=== PATIENT | male | born 1980 | race Caucasian/White ===

== ENCOUNTER 2023-09-30 14:49 | Inpatient (IN) | payer BC ==
[2023-09-30 15:17] VITALS: BMI 29.9
[2023-09-30] MEDS ORDERED: MAG HYDROX/AL HYDROX/SIMETH 30 ML UNIT-DOSE CUP PO PRN (17:15)
[2023-09-30] MEDS ORDERED: IBUPROFEN 600 MG TABLET (FP) PO PRN (17:15)
[2023-09-30] MEDS ORDERED: POLYETHYLENE GLYCOL (HEALTHYLAX) 3350 17 GM PACKET PO PRN (17:15)
[2023-09-30] MEDS ORDERED: IBUPROFEN 400 MG TABLET (FP) PO PRN (17:15)
[2023-09-30] MEDS ORDERED: NALOXONE HCL 0.4 MG/ML VIAL IM PRN (17:15)
[2023-09-30] MEDS ORDERED: hydrOXYzine PAMOATE 25 MG CAPSULE (FP) PO PRN (17:15)
[2023-09-30] MEDS ORDERED: LOPERAMIDE HCL 2 MG CAPSULE PO PRN (17:15)
[2023-09-30] MEDS ORDERED: guaiFENesin 600 MG TABLET.ER (FP) PO PRN (17:15)
[2023-09-30] MEDS ORDERED: MAGNESIUM HYDROX 2400MG/30ML ORAL SUSPENSION 30 ML CUP PO PRN (17:15)
[2023-09-30] MEDS ORDERED: BISMUTH SUBSALICYLATE 524 MG/30 ML PO PRN (17:15)
[2023-09-30] MEDS ORDERED: BENZOCAINE/MENTHOL (CHLORASEPTIC ) LOZENGE MM PRN (17:15)
[2023-09-30] MEDS ORDERED: ONDANSETRON *ODT* 4 MG TABLET SL PRN (17:15)
[2023-09-30] MEDS ORDERED: ACETAMINOPHEN 325 MG TABLET (FP) PO PRN (17:15)
[2023-09-30] MEDS ORDERED: BENZONATATE 200 MG CAPSULE PO PRN (17:15)
[2023-09-30] MEDS ORDERED: NALOXONE HCL (KLOXXADO) 8 MG SPRAY NS PRN (17:15)
[2023-09-30] MEDS ORDERED: DICYCLOMINE HCL 10 MG CAPSULE PO PRN (17:15)
[2023-09-30] MEDS ORDERED: METOPROLOL TARTRATE 25 MG TABLET (FP) ONE (20:34)
[2023-09-30] MEDS: METOPROLOL TARTRATE 25 MG TABLET (FP) PO ONE (20:35)
[2023-09-30] MEDS: chlordiazePOXIDE HCL 25 MG CAPSULE PO SCH (22:22)
[2023-09-30] MEDS: THIAMINE 100 MG TABLET PO SCH (22:23)
[2023-09-30] MEDS: MELATONIN 5 MG TABLETS PO SCH (23:16)
[2023-10-01] MEDS: ATORVASTATIN CA 20 MG TABLET (FP) PO SCH (00:07)
[2023-10-01 08:21] LABS: CHLORIDE 99 mmol/L (98-107); POTASSIUM 4.4 mmol/L (3.5-5.1); SODIUM 136 mmol/L (136-145)
[2023-10-01 08:23] LABS: ALBUMIN 3.7 g/dl (3.4-5.0); ANION GAP 6 mmol/L (4-13); BLOOD UREA NITROGEN 10.4 mg/dL (7-18); CALCIUM 9.4 mg/dL (8.5-10.1); CO2 31 mmol/L (21-32)
[2023-10-01 08:24] LABS: GLUCOSE,RANDOM 104 mg/dL (74-106)
[2023-10-01 08:27] LABS: SGOT/AST 105 U/L (15-37); SGPT/ALT 84 U/L (13-61)
[2023-10-01 08:28] LABS: TOT PROT 7.3 g/dl (6.4-8.2)
[2023-10-01 08:29] LABS: ALK PHOS 80 U/L (45-117)
[2023-10-01 08:40] LABS: HEMATOCRIT 40.1 % (35.4-49); HEMOGLOBIN 14.4 GM/dL (11.7-16.9); MCH 32.5 pg (25.7-33.7); MEAN CELL VOLUME 90.2 fl (80-96); MEAN PLT VOLUME 8.7 fl (7.5-11.1); PLATELET COUNT 133 10^3/uL (134-434); RBC 4.44 M/mm3 (4.00-5.60); RDW 15.5 % (11.9-15.9); WHITE BLOOD COUNT 6.4 K/mm3 (4.0-10.0)
[2023-10-01] MEDS ORDERED: PATIENT'S OWN MEDICATION (NON-FORMULARY) (Lisinopril/Hydrochlorothiazide [Lisinopril-Hctz PO SCH (10:00)
[2023-10-01] MEDS: HYDROCHLOROTHIAZIDE 12.5 MG CAPSULE (FP) PO SCH (10:15)
[2023-10-01] MEDS: LISINOPRIL 10 MG TABLET PO SCH (10:15)
[2023-10-01] MEDS: PRENATAL VITAMINS W/ FOLIC ACID TABLET (FP) PO SCH (10:15)
[2023-10-01] MEDS: chlordiazePOXIDE HCL 25 MG CAPSULE PO PRN (14:46)
[2023-10-01] MEDS ORDERED: ATORVASTATIN CA 20 MG TABLET (FP) PO SCH (22:00)
[2023-10-02] MEDS: chlordiazePOXIDE HCL 25 MG CAPSULE PO SCH (05:36)
[2023-10-02] MEDS: METHOCARBAMOL 500 MG TABLET PO PRN (22:36)
[2023-10-03] MEDS ORDERED: chlordiazePOXIDE HCL 10 MG CAPSULE PO PRN
[2023-10-03] MEDS: chlordiazePOXIDE HCL 10 MG CAPSULE PO SCH (05:30)
[2023-10-04] MEDS: chlordiazePOXIDE HCL 10 MG CAPSULE PO SCH (05:20)
[2023-10-04 08:47] VITALS: RESP 18
[2023-10-04] MEDS: LORazepam 0.5 MG TABLET PO ONE (17:11)
[2023-10-05] MEDS ORDERED: chlordiazePOXIDE HCL 10 MG CAPSULE PO ONE (05:00)
[2023-10-05] MEDS: LORazepam 0.5 MG TABLET PO ONE (05:44)
[2023-10-05 08:50] VITALS: BP 111/71; PULSE 86; TEMP 97.1
== END 2023-10-05 09:25 | disposition home or self-care (01) | DRG 897 ==
LOC: YASAS 14:49 → Y6N 18:42
PROVIDERS: ADMIT Allergy & Immunology; ATTEND Surgery
PROC: HZ2ZZZZ Detoxification Services for Substance Abuse Treatment (ICD-10-PCS; principal; 2023-09-30)
DX: F10.230 Alcohol dependence with withdrawal, uncomplicated (principal); E78.5 Hyperlipidemia, unspecified; I10 Essential (primary) hypertension; R74.8 Abnormal levels of other serum enzymes; Z86.69 Personal history of other diseases of the nervous system and sense organs
CPT/HCPCS: 36415; 80053; 80305; 80307; 82247; 84450; 84460; 85027; 86780; 93005; 93010